=== PATIENT | male | born 1965 | race Caucasian/White ===

== ENCOUNTER → 2018-07-09 | Outpatient (CLI) | payer BC ==
[~2018-07-09] MED LIST: AMOX; COLA100C2; FLAG500T; K CLAV; LEVA500T; MOTR200T4; VICO5TAB
[2018-07-09 17:00] LABS: BASO % 0.3 % (0.0-1.0); EOS # 0.1 10^3/uL (0.0-0.50); EOS % 0.5 % (0.0-3.0); HEMATOCRIT 43.6 % (42.0-52.0); HEMOGLOBIN 15.3 g/dl (13.5-17.5); LYMPH # 1.6 10^3/uL (1.5-4.5); LYMPH % 10.5 % (24.0-44.0); MEAN CORPUSCULAR HEMOGLOBIN 31.4 pg (27.0-33.0); MEAN CORPUSCULAR HGB CONC 35.1 g/dl (32.0-36.5); MEAN CORPUSCULAR VOLUME 89.3 fl (80.0-96.0); MONO # 0.9 10^3/uL (0.0-0.8); MONO % 6.3 % (0.0-5.0); NEUTROPHILS # 12.2 10^3/uL (1.8-7.7); NEUTROPHILS % 82.1 % (36.0-66.0); PLATELET COUNT, AUTOMATED 248 10^3/uL (150-450); RED BLOOD COUNT 4.88 10^6/uL (4.30-6.10); WHITE BLOOD COUNT 14.9 10^3/uL (4.0-10.0)
[2018-07-09 17:02] LABS: ALBUMIN 3.8 GM/DL (3.2-5.2); ALT/SGPT 27 U/L (12-78); AMYLASE 46 U/L (25-115); BLOOD UREA NITROGEN 11 MG/DL (7-18); CALCIUM LEVEL 9.2 MG/DL (8.5-10.1); CARBON DIOXIDE LEVEL 30 MEQ/L (21-32); CHLORIDE LEVEL 103 MEQ/L (98-107); CREATININE FOR GFR 1.07 MG/DL (0.70-1.30); GLOMERULAR FILTRATION RATE > 60.0 (>56); GLUCOSE, FASTING 103 MG/DL (70-100); LIPASE 71 U/L (73-393); POTASSIUM SERUM 4.3 MEQ/L (3.5-5.1); SODIUM LEVEL 138 MEQ/L (136-145)
[2018-07-09 19:39] LABS: ERYTHROCYTE SEDIMENTATION RATE 13 mm/hr (0-20)
== END ==
LOC: M WUC 13:20
PROVIDERS: ATTEND Physician Assistant
DX: K57.30 Diverticulosis of large intestine without perforation or abscess without bleeding (principal); R31.9 Hematuria, unspecified

== ENCOUNTER → 2018-07-19 | Outpatient (CLI) | payer BC ==
--- NOTE | 2018-07-19 11:36 | REP ---
SCROTAL SONOGRAPHY: HISTORY: Bilateral inguinal hernia. Comparison is made with imaging from CT study dated April 08, 2009. FINDINGS: High-resolution bilateral scrotal sonography shows no evidence of intratesticular mass on either side. Right testis measures 4.5 x 1.6 x 3.8 cm. Left testicular dimensions are 4.5 x 2.0 x 2.5 cm. Testicular Doppler flow is intact. Resistive indices are measured at 0.73 on the right and 0.66 on the left. There are multiple epididymal cysts including a very large epididymal cyst on the right. This measures 11.2 x 6.9 x 9.4 cm. A cystic area is visible in the scrotum on the right on the 2008 CT study although it appeared to have been smaller. The left epididymis is normal. No other intrascrotal lesion is seen. There is no sonographic evidence of hernia. IMPRESSION: Large right epididymal cyst. No hernia seen. No testicular pathology seen. Electronically Signed by Mumtaz Rowe MD 07/19/2018 02:33 P
--- NOTE | 2018-07-19 12:13 | REP ---
BILATERAL INGUINAL SOFT-TISSUE ULTRASOUND: HISTORY: Inguinal hernia. FINDINGS: Sonographic evaluation of the inguinal canals performed with and without Valsalva bilaterally. The right inguinal canal dilates with Valsalva from 1.52 to 1.8 cm in AP dimension. A small quantity of abdominal fat is seen sliding through a 1 cm defect with Valsalva. This is reducible with probe pressure. Findings are compatible with a small inguinal hernia. Electronically Signed by Mumtaz Rowe MD 07/19/2018 02:34 P
== END ==
LOC: M RAD 10:06
PROVIDERS: ATTEND Surgery
DX: K40.90 Unilateral inguinal hernia, without obstruction or gangrene, not specified as recurrent (principal)

== ENCOUNTER 2018-08-07 10:00 | Day surgery (SDC) | payer BC ==
[~2018-08-07] VITALS: Ht 180.3 cm; Wt 78.8 kg
[~2018-08-07 10:00] MED LIST changes: +NS 1,000 ML IV ONE
[2018-08-07] MEDS ORDERED: LIDOCAINE 2% INJ 100 MG/5 ML SDV (FOR ANES.) As Ordered ONE (10:16)
[2018-08-07] MEDS ORDERED: PROPOFOL 200 MG/20 ML VIAL As Ordered ONE (10:39)
--- NOTE | 2018-08-07 11:41 | ROOR ---
Patient Name: Jean Paul Neumann Procedure Date: 08/07/2018 11:25 AM Date of : 1965 Age: 53 Room: [facility] Gender: Male Note Status: Finalized Procedure: Colonoscopy Indications: Follow-up of diverticulitis Providers: Ron Mauro DO Referring MD: 1. No Referring Physician 1. No Referring Physician, Admin. Requesting Provider: Medicines: Propofol per Anesthesia Complications: No immediate complications. Procedure: Pre-Anesthesia Assessment: - Prior to the procedure, a History and Physical was performed, and patient medications and allergies were reviewed. The patient is competent. The risks and benefits of the procedure and the sedation options and risks were discussed with the patient. All questions were answered and informed consent was obtained. Patient identification and proposed procedure were verified by the physician, the nurse, the anesthesiologist and the mechanic sound technician in the endoscopy suite. Mental Status Examination: alert and oriented. Airway Examination: normal oropharyngeal airway and neck mobility. Respiratory Examination: clear to auscultation. CV Examination: normal. ASA Grade Assessment: II - A patient with mild systemic disease. After reviewing the risks and benefits, the patient was deemed in satisfactory condition to undergo the procedure. The anesthesia plan was to use monitored anesthesia care (MAC). Immediately prior to administration of medications, the patient was re-assessed for adequacy to receive sedatives. The heart rate, respiratory rate, oxygen saturations, blood pressure, adequacy of pulmonary ventilation, and response to care were monitored throughout the procedure. The physical status of the patient was re-assessed after the procedure. The Colonoscope was introduced through the anus and advanced to the cecum, identified by appendiceal orifice and ileocecal valve. The colonoscopy was performed without difficulty. The patient tolerated the procedure well. Findings: Hemorrhoids were found on perianal exam. Multiple small-mouthed diverticula were found in the entire colon. The exam was otherwise without abnormality on direct and retroflexion views. Impression: - Hemorrhoids found on perianal exam. - Diverticulosis in the entire examined colon. - The examination was otherwise normal on direct and retroflexion views. - No specimens collected. Recommendation: - Patient has a contact number available for emergencies. The signs and symptoms of potential delayed complications were discussed with the patient. Return to normal activities tomorrow. Written discharge instructions were provided to the patient. - Repeat colonoscopy in 5-10 years for screening purposes. - Return to my office PRN. Ron Mauro DO 08/07/2018 11:41:17 AM Electronically signed by Ron Mauro DO Number of Addenda: 0 Note Initiated On: 08/07/2018 11:25 AM Estimated Blood Loss: Estimated blood loss was minimal.
[2018-08-07 12:15] VITALS: BP 126/73
== END 2018-08-07 12:25 | disposition home or self-care (01) ==
LOC: M OPP 10:00
PROVIDERS: ATTEND Surgery
DX: K57.30 Diverticulosis of large intestine without perforation or abscess without bleeding (principal); K64.9 Unspecified hemorrhoids

== ENCOUNTER 2018-08-30 14:12 | Emergency (ER) | payer BC ==
[~2018-08-30] VITALS: Ht 182.9 cm; Wt 86.5 kg
[~2018-08-30 14:12] MED LIST changes: -NS 1,000 ML IV ONE
[2018-08-30] MEDS ORDERED: NS 1,000 ML IV ONE (14:45)
[2018-08-30 15:11] LABS: BASO % 0.3 % (0.0-1.0); EOS # 0.1 10^3/uL (0.0-0.50); EOS % 0.8 % (0.0-3.0); HEMATOCRIT 43.8 % (42.0-52.0); HEMOGLOBIN 15.1 g/dl (13.5-17.5); LYMPH # 1.3 10^3/uL (1.5-4.5); MEAN CORPUSCULAR HEMOGLOBIN 31.8 pg (27.0-33.0); MEAN CORPUSCULAR HGB CONC 34.5 g/dl (32.0-36.5); MEAN CORPUSCULAR VOLUME 92.2 fl (80.0-96.0); MONO # 0.9 10^3/uL (0.0-0.8); MONO % 7.3 % (0.0-5.0); NEUTROPHILS # 9.4 10^3/uL (1.8-7.7); NEUTROPHILS % 80.2 % (36.0-66.0); PLATELET COUNT, AUTOMATED 237 10^3/uL (150-450); RED BLOOD COUNT 4.75 10^6/uL (4.30-6.10); WHITE BLOOD COUNT 11.7 10^3/uL (4.0-10.0)
[2018-08-30 15:38] LABS: ALBUMIN 3.9 GM/DL (3.2-5.2); ALT/SGPT 25 U/L (12-78); BILIRUBIN,DIRECT 0.2 MG/DL (0.0-0.2); BILIRUBIN,TOTAL 1.2 MG/DL (0.2-1.0); BLOOD UREA NITROGEN 8 MG/DL (7-18); CALCIUM LEVEL 8.5 MG/DL (8.5-10.1); CARBON DIOXIDE LEVEL 31 MEQ/L (21-32); CHLORIDE LEVEL 103 MEQ/L (98-107); CREATININE FOR GFR 0.98 MG/DL (0.70-1.30); GLOMERULAR FILTRATION RATE > 60.0 (>56); GLUCOSE, FASTING 90 MG/DL (70-100); LIPASE 73 U/L (73-393); POTASSIUM SERUM 3.7 MEQ/L (3.5-5.1); SODIUM LEVEL 138 MEQ/L (136-145)
[2018-08-30] MEDS ORDERED: ISOVUE-370 76% 100ML VIAL (Q9967) As Ordered ONE (15:41)
[2018-08-30] MEDS ORDERED: CIPR-249 PO (16:47)
[2018-08-30] MEDS ORDERED: FLAG500T PO (16:47)
[2018-08-30 17:01] VITALS: BP 120/73
--- NOTE | 2018-08-30 17:24 | REP ---
CT ABDOMEN AND PELVIS WITH IV CONTRAST: TECHNIQUE: Axial contrast enhanced images from the lung bases to the pubic symphysis using 100 mL Isovue 370 intravenous contrast material with multiplanar reformations. Visualized lung bases demonstrate no infiltrate. The liver, spleen, adrenals, pancreas, and kidneys are unremarkable. There is no hydronephrosis bilaterally. There is no abdominal aortic aneurysm. No adenopathy is seen. There is no free air or free fluid however there are multiple sigmoid diverticula present with surrounding streaky inflammatory changes compatible with diverticulitis. That segment of sigmoid colon is thickened. The appendix is normal and not inflamed. The urinary bladder is unremarkable. Suture line is seen in the sigmoid colon. Incidental note is made of a large right epididymal cyst. IMPRESSION: Findings compatible with sigmoid diverticulitis. No free air or abscess. No significant free fluid. Large right epididymal cyst Electronically Signed by Ron Mason MD 09/04/2018 11:47 A
== END 2018-08-30 17:08 | disposition home or self-care (01) ==
LOC: M ED 14:12
DX: K57.32 Diverticulitis of large intestine without perforation or abscess without bleeding (principal); K57.90 Diverticulosis of intestine, part unspecified, without perforation or abscess without bleeding; N50.3 Cyst of epididymis; M54.5 Low back pain; F17.220 Nicotine dependence, chewing tobacco, uncomplicated; Z88.6 Allergy status to analgesic agent; Z90.49 Acquired absence of other specified parts of digestive tract
CPT/HCPCS: 74177; 80048; 80076; 81001; 83605; 83690; 85025; 96360; 96361; 99284; Q9967

== ENCOUNTER 2018-10-04 20:47 | Emergency (ER) | payer BC ==
[~2018-10-04] VITALS: Ht 182.9 cm; Wt 75.9 kg
[~2018-10-04 20:47] MED LIST changes: +CIPR-249 PO; +FLAG500T PO
[2018-10-04] MEDS ORDERED: AUGM875T28 PO (20:57)
[2018-10-04] MEDS ORDERED: DICY10CA13 PO (20:57)
[2018-10-04] MEDS ORDERED: BAYE500T2 PO (20:57)
[2018-10-05] MEDS ORDERED: CYCLOBENZAPRINE 10 MG TAB PO ONE
[2018-10-05] MEDS ORDERED: CYCL10TA PO
[2018-10-05] MEDS ORDERED: NAPR-837 PO
[2018-10-05 00:07] VITALS: BP 131/80
== END 2018-10-05 00:13 | disposition home or self-care (01) ==
LOC: M ED 20:47
DX: S39.012A Strain of muscle, fascia and tendon of lower back, initial encounter (principal); X50.0XXA Overexertion from strenuous movement or load, initial encounter; Y92.89 Other specified places as the place of occurrence of the external cause; M54.5 Low back pain; G89.29 Other chronic pain; Z87.891 Personal history of nicotine dependence; Z88.5 Allergy status to narcotic agent; Z79.2 Long term (current) use of antibiotics

== ENCOUNTER → 2019-02-06 | Outpatient (CLI) | payer BC ==
[~2019-02-06] MED LIST changes: +AUGM875T28 PO; +BAYE500T2 PO; +CYCL10TA PO; +DICY10CA13 PO; +NAPR-837 PO
--- NOTE | 2019-02-07 05:03 | REP ---
Clinical: Epididymal cyst. Technique: Real time francisco scale and color Doppler evaluation using linear high frequency transducer. Comparison: 07/19/2018. Findings: Large cystic area again identified in the right xiomara scrotum essentially unchanged from prior examination and likely representing epididymal cyst causing surrounding mass effect. Incidental small left epididymal cyst measures 3.6 x 3.1 x 5.6 mm. The bilateral testicles are normal in appearance and vascularity without torsion or intratesticular mass lesion. Right testicle measures 4.6 x 1.9 x 2.7 cm. Left testicle measures 4.5 x 2.7 x 2.9 cm. Impression: 1. Large fluid collection in the right xiomara scrotum likely large epididymal cyst essentially unchanged from prior examination. Small relatively insignificant left epididymal cyst. 2. Essentially normal appearance and vascularity to the bilateral testicles. Electronically Signed by Robbin Richard MD 02/07/2019 04:54 A
== END ==
LOC: M RAD 09:57
PROVIDERS: ATTEND Nurse Practitioner Women's Health
DX: N50.3 Cyst of epididymis (principal)

== ENCOUNTER → 2019-02-26 | Outpatient (CLI) | payer BC ==
[2019-02-26 10:41] LABS: HEMATOCRIT 45.8 % (42.0-52.0); HEMOGLOBIN 15.7 g/dl (13.5-17.5); MEAN CORPUSCULAR HEMOGLOBIN 31.4 pg (27.0-33.0); MEAN CORPUSCULAR HGB CONC 34.3 g/dl (32.0-36.5); MEAN CORPUSCULAR VOLUME 91.6 fl (80.0-96.0); PLATELET COUNT, AUTOMATED 259 10^3/uL (150-450); WHITE BLOOD COUNT 6.7 10^3/uL (4.0-10.0)
[2019-02-26 11:04] LABS: BLOOD UREA NITROGEN 13 MG/DL (7-18); CALCIUM LEVEL 9.6 MG/DL (8.5-10.1); CARBON DIOXIDE LEVEL 31 MEQ/L (21-32); CHLORIDE LEVEL 104 MEQ/L (98-107); CREATININE FOR GFR 1.08 MG/DL (0.70-1.30); GLOMERULAR FILTRATION RATE > 60.0 (>56); GLUCOSE, FASTING 105 MG/DL (70-100); INR 1.02; PARTIAL THROMBOPLASTIN TIME 26.7 SECONDS (25.0-38.4); POTASSIUM SERUM 4.5 MEQ/L (3.5-5.1); PROTHROMBIN TIME 13.1 SECONDS (11.8-14.0); SODIUM LEVEL 139 MEQ/L (136-145)
[2019-02-26 11:06] LABS: APPEARANCE, URINE CLEAR (CLEAR); BACTERIA, URINE AUTO NEGATIVE (NEGATIVE); BILIRUBIN, URINE AUTO NEGATIVE (NEGATIVE); BLOOD, URINE BLOOD NEGATIVE (NEGATIVE); COLOR, URINE YELLOW (YELLOW); GLUCOSE, URINE (UA) AUTO NEGATIVE (NEGATIVE); KETONE, URINE AUTO NEGATIVE (NEGATIVE); LEUKOCYTE ESTERASE, URINE AUTO NEGATIVE (NEGATIVE); MUCUS, URINE SMALL (NEGATIVE); NITRITE, URINE AUTO NEGATIVE (NEGATIVE); PROTEIN, URINE AUTO NEGATIVE (NEGATIVE); RBC, URINE AUTO 2 /HPF (0-3); SPECIFIC GRAVITY URINE AUTO 1.019 (1.002-1.035); SQUAMOUS EPITHELIAL CELL UR AU 0 /HPF (0-6); UROBILINOGEN, URINE AUTO 0.2 mg/dL (0.0-2.0); WBC, URINE AUTO 0 /HPF (0-3)
--- NOTE | 2019-02-26 16:18 | REP ---
Two views chest: 02/26/2019. Indication: Preoperative assessment. Comparison: None. Findings: The lungs are clear. There is no significant pleural effusion or pneumothorax. The cardiac silhouette is unremarkable. Impression: Clear lungs. Electronically Signed by Con Ruiz DO 02/26/2019 04:09 P
--- NOTE | 2019-02-27 08:32 | ECGEPIP ---
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
== END ==
LOC: M LAB 08:43
PROVIDERS: ATTEND Nurse Practitioner Women's Health
DX: N50.3 Cyst of epididymis (principal)

== ENCOUNTER → 2019-03-12 | Day surgery (SDC) | payer BC ==
[~2019-03-12] VITALS: Ht 182.9 cm; Wt 80.3 kg
[~2019-03-12] MED LIST changes: +LIDOCAINE 2% INJ 100 MG/5 ML SDV (FOR ANES.) As Ordered ONE; +LR 1,000 ML IV ONE; +MIDAZOLAM INJ 2 MG/2 ML VIAL (J2250) As Ordered ONE; +PROPOFOL 200 MG/20 ML VIAL As Ordered ONE; +ceFAZolin SOD 2 GM in IV 1 EA IV ONE; +fentaNYL 100 MCG/2 ML INJECTION (J3010) As Ordered ONE
[2019-03-12 11:00] VITALS: BP 122/79
== END | disposition home or self-care (01) ==
LOC: M SDC 10:16
PROVIDERS: ATTEND Urology
DX: N50.3 Cyst of epididymis (principal); Z53.29 Procedure and treatment not carried out because of patient's decision for other reasons
CPT/HCPCS: J2250; J3010

== ENCOUNTER 2024-01-29 14:32 | Inpatient (IN) | payer BC ==
[~2024-01-29] VITALS: Ht 180.3 cm; Wt 79.0 kg
[~2024-01-29 14:32] MED LIST changes: +CYCL-707 PO; -CYCL10TA PO; +DICY-61 PO; -DICY10CA13 PO; -LIDOCAINE 2% INJ 100 MG/5 ML SDV (FOR ANES.) As Ordered ONE; -LR 1,000 ML IV ONE; -MIDAZOLAM INJ 2 MG/2 ML VIAL (J2250) As Ordered ONE; -PROPOFOL 200 MG/20 ML VIAL As Ordered ONE; -ceFAZolin SOD 2 GM in IV 1 EA IV ONE; -fentaNYL 100 MCG/2 ML INJECTION (J3010) As Ordered ONE
[2024-01-29 15:33] LABS: BASO % 0.2 % (0.0-1.0); HEMATOCRIT 44.5 % (42.0-52.0); HEMOGLOBIN 15.7 g/dl (13.5-17.5); LYMPH % 6.9 % (24.0-44.0); MEAN CORPUSCULAR HGB CONC 35.3 g/dl (32.0-36.5); MEAN CORPUSCULAR VOLUME 90.6 fl (80.0-96.0); MONO # 0.4 10^3/uL (0.0-0.8); MONO % 2.5 % (2.0-8.0); NEUTROPHILS # 13.1 10^3/uL (1.5-8.5); NEUTROPHILS % 89.9 % (36.0-66.0); PLATELET COUNT, AUTOMATED 279 10^3/uL (150-450); RED BLOOD COUNT 4.91 10^6/uL (4.30-6.10); WHITE BLOOD COUNT 14.6 10^3/uL (4.0-10.0)
[2024-01-29] MEDS: KETOROLAC 30 MG/ML 1ML VIAL IV ONE (15:52)
[2024-01-29 16:03] LABS: BLOOD UREA NITROGEN 14 MG/DL (9-23); CALCIUM LEVEL 9.3 MG/DL (8.5-10.1); CARBON DIOXIDE LEVEL 30 MMOL/L (20-31); CHLORIDE LEVEL 108 MMOL/L (98-107); CREATININE FOR GFR 0.92 MG/DL (0.70-1.30); GLOMERULAR FILTRATION RATE > 60.0 (>56); GLUCOSE, FASTING 123 MG/DL (60-100); POTASSIUM SERUM 4.1 MMOL/L (3.5-5.1); SODIUM LEVEL 140 MMOL/L (136-145)
[2024-01-29] MEDS: HYDROMORPHONE HCL 0.5 MG/ 0.5 ML SYRINGE IV ONE (17:11)
[2024-01-29] MEDS ORDERED: oxyCODONE 5MG TAB PO PRN (20:50)
[2024-01-29] MEDS ORDERED: MAALOX 30 ML SUSP *UDC PO PRN (20:50)
[2024-01-29] MEDS ORDERED: MOM 30ML SUSPENSION UDC PO PRN (20:50)
[2024-01-29] MEDS ORDERED: ACETAMINOPHEN 325 MG TAB PO PRN (20:50)
[2024-01-29] MEDS ORDERED: PRED20TA PO (20:51)
[2024-01-29] MEDS ORDERED: HOME MED LIST COMPLETE! XX SCH (20:55)
[2024-01-29] MEDS: DOCUSATE SODIUM 100MG CAPSULE PO SCH (21:00)
[2024-01-29] MEDS: KETOROLAC 30 MG/ML 1ML VIAL IV SCH (21:00)
[2024-01-29] MEDS: ACETAMINOPHEN 500 MG TAB PO SCH (21:13)
[2024-01-29 23:25] VITALS: BP 151/77; TEMP 98.2; O2SAT 94
[2024-01-29] MEDS: CYCLOBENZAPRINE 10MG TABLET PO SCH (23:41)
[2024-01-30 04:41] VITALS: BP 135/76; TEMP 97.7; O2SAT 98
[2024-01-30] MEDS: oxyCODONE 5MG TAB PO PRN (04:49)
[2024-01-30] MEDS: ENOXAPARIN 40MG/0.4ML SYRINGE (J1650 PER 10MG) SC SCH (09:03)
[2024-01-30] MEDS: PANTOPRAZOLE 40MG TAB (PROTONIX) PO SCH (09:41)
[2024-01-30] MEDS: SENNA 8.6 MG TAB (SENOKOT) PO SCH (09:41)
[2024-01-30] MEDS: methylPREDNISolone 40MG 1ML VIAL IV SCH (09:41)
[2024-01-30] MEDS: KETOROLAC 30 MG/ML 1ML VIAL IV SCH (09:42)
[2024-01-30] MEDS: GABAPENTIN 100 MG CAP PO SCH (09:48)
[2024-01-30 12:00] VITALS: BP_SYST 128; BP_SYST 139; BP_DIAS 75; BP_DIAS 77; TEMP 97.9; TEMP 98.5; O2SAT 96; O2SAT 97
[2024-01-30 20:07] VITALS: BP 128/75; TEMP 98.8; O2SAT 92
[2024-01-31 04:35] VITALS: BP 118/63; TEMP 97.7; O2SAT 96
[2024-01-31] MEDS ORDERED: PANT40TA29 PO (07:59)
[2024-01-31] MEDS ORDERED: CYCL10TA20 PO (07:59)
[2024-01-31] MEDS ORDERED: IBUP-1114 PO (07:59)
[2024-01-31] MEDS ORDERED: GABA-1171 PO (07:59)
[2024-01-31] MEDS ORDERED: ACET-683 PO (07:59)
== END 2024-01-31 09:52 | disposition home or self-care (01) | DRG 347 ==
LOC: M ED 14:32 → EDBD 14:32 → M ED INP 20:46 → M MS5PR 23:24
PROVIDERS: ADMIT Internal Medicine; ATTEND Internal Medicine Nephrology
DX: M51.16 Intervertebral disc disorders with radiculopathy, lumbar region (principal); F17.290 Nicotine dependence, other tobacco product, uncomplicated; G89.29 Other chronic pain; Z88.5 Allergy status to narcotic agent; M48.061 Spinal stenosis, lumbar region without neurogenic claudication; Z90.49 Acquired absence of other specified parts of digestive tract